=== PATIENT | male | born 1975 | race Two or more races ===

== ENCOUNTER 2023-07-19 19:24 | Inpatient (IN) | payer OTHER ==
[~2023-07-19] VITALS: Ht 165.1 cm; Wt 100.6 kg
[2023-07-19] MEDS ORDERED: ONDANSETRON HCL 4 MG/2 ML VIAL IV ONE (20:15)
[2023-07-19] MEDS ORDERED: PANTOPRAZOLE 40 MG/10 ML VIAL INJ IV ONE (20:15)
[2023-07-19] MEDS ORDERED: HYDROmorphone HCL 2 MG/ML VL/or syr IV ONE (20:15)
[2023-07-19] MEDS ORDERED: SODIUM CHLORIDE 0.9% 1,000 ML IVB ONE (20:15)
[2023-07-19] MEDS ORDERED: IOHEXOL 300 MG/ML 100ML BOTTLE IJ ONE (20:21)
[2023-07-19 21:00] LABS: Basophils # (auto) 0 10 ^3/uL (0-0.2); Basophils % (auto) 0.2 % (0.0-2.0); Eosinophils # (auto) 0 10 ^3/uL (0-0.8); Eosinophils % (auto) 0.1 % (0.0-7.0); Hematocrit 48.7 % (41.0-53.0); Hemoglobin 16.2 g/dL (13.5-17.5); Lymphocytes # (auto) 1.1 10 ^3/uL (0.4-5.4); Lymphocytes % (auto) 8.1 % (10.0-50.0); Mean Corpuscular Hemoglobin 30.3 pg (28.0-32.0); Mean Corpuscular Hgb Conc. 33.2 g/dL (32.0-36.0); Mean Corpuscular Volume 91.3 fL (80.0-100.0); Monocytes # (auto) 0.8 10 ^3/uL (0-1.3); Monocytes % (auto) 5.9 % (0.0-12.0); Neutrophils # (auto) 11.5 10 ^3/uL (1.6-8.6); Neutrophils % (auto) 85.7 % (37.0-80.0); Nucleated Red Blood Cells % 0.3 %; Red Blood Cells 5.33 10^6/uL (4.5-5.90); Red Cell Distribution Width 13.3 % (11.8-14.3); White Blood Cell 13.4 10^3/uL (4.4-10.8)
[2023-07-19 21:20] LABS: Alanine Aminotransferase 13 U/L (7-40); Albumin 4.7 g/dL (3.2-4.8); Alkaline Phosphatase 58 U/L (46-116); Anion Gap 11 (5-15); Aspartate Aminotransferase 39 U/L (13-40); BUN/Creatinine Ratio 7.4 (10.0-20.0); Blood Urea Nitrogen 11 mg/dL (9-23); Calcium 10.1 mg/dL (8.5-10.1); Carbon Dioxide 26 mmol/L (20-30); Chloride 100 mmol/L (98-107); Glucose 115 mg/dL (74-106); Potassium 3.9 mmol/L (3.5-5.1); Sodium 137 mmol/L (136-145)
[2023-07-19 21:21] LABS: Bilirubin, Total 2.2 mg/dL (0.2-1.0); Lactic Acid w/Reflex 3.6 mmol/L (0.4-2.0)
[2023-07-19 21:34] LABS: Lipase 49 U/L (12-53); Magnesium 2.1 mg/dL (1.6-2.6)
[2023-07-19 22:06] LABS: Blood Alcohol < 3.0 mg/dL (<10)
[2023-07-19] MEDS ORDERED: PIPERACILLIN-TAZOB 3.375GM 100 ML IV ONE (23:15)
[2023-07-19 23:56] LABS: Urine Epithelial Cast None Seen /hpf (<5)
[2023-07-20] VITALS (8 sets, daily range): BP systolic 126–144; BP diastolic 67–82; PULSE 60–71; RESP 14–20; TEMP 97.5–98.7; O2SAT 96–98
[2023-07-20] MEDS ORDERED: metroNIDAZOLE 500MG/100ML 100 ML IV ONE
[2023-07-20] MEDS ORDERED: SODIUM CHLORIDE 0.9% 1,000 ML IV ONE
[2023-07-20 00:19] LABS: Urine Bacteria NONE SEEN /hpf (None Seen); Urine Blood 3+ /uL (Negative); Urine Clarity Clear (Clear); Urine Color Yellow (Yellow); Urine Protein, UAD TRACE (Negative); Urine Specific Gravity 1.036 (1.001-1.035); Urine Urobilinogen Normal (Negative); Urine WBC 8 /hpf (0 - 3)
[2023-07-20 00:25] LABS: Amphetamine Screen, Urine Neg (NEGATIVE); Benzodiazephine Screen, Urine Neg (NEGATIVE)
[2023-07-20 00:26] LABS: Barbiturate Scree,Urine Neg (NEGATIVE); Cannabinoid Screen, Urine Neg (NEGATIVE); Cocaine Screen, Urine Neg (NEGATIVE); Opiate Scree,Urine Neg (NEGATIVE); Phencyclidine Screen, Urine Neg (NEGATIVE)
[2023-07-20] MEDS ORDERED: METOCLOPRAMIDE 10 mg/10ml ORAL soln GT ONE (02:00)
[2023-07-20] MEDS ORDERED: MORPHINE SULFATE INJ 2 MG/ml SYRG IV PRN (02:15)
[2023-07-20] MEDS ORDERED: NITROGLYCERIN 0.4 MG SL TAB SL PRN (02:15)
[2023-07-20] MEDS ORDERED: ONDANSETRON HCL 4 MG/2 ML VIAL IV PRN (02:15)
[2023-07-20] MEDS: D5W/SOD CHL 0.45% 1,000 ML IV SCH ×4 (02:15→22:15)
[2023-07-20 04:13] LABS: Chloride 105 mmol/L (98-107); Potassium 3.8 mmol/L (3.5-5.1); Sodium 139 mmol/L (136-145)
[2023-07-20 04:14] LABS: Anion Gap 8 (5-15); Calcium 8.7 mg/dL (8.7-10.4); Carbon Dioxide 26 mmol/L (20-30)
[2023-07-20 04:19] LABS: BUN/Creatinine Ratio 10.9 (10.0-20.0); Blood Urea Nitrogen 14 mg/dL (9-23); Glucose 106 mg/dL (74-106)
[2023-07-20] MEDS ORDERED: LISI20TA56 PO (06:05)
[2023-07-20] MEDS: MORPHINE SULFATE INJ 2 MG/ml SYRG IV PRN ×3 (06:38→17:28)
[2023-07-20] MEDS: TAMSULOSIN HYDROCHLORIDE 0.4 MG CAP PO SCH (10:48)
[2023-07-20] MEDS: PANTOPRAZOLE 40 MG/10 ML VIAL INJ IV SCH ×2 (10:48→20:07)
[2023-07-20] MEDS: ENOXAPARIN SOD 40 MG/0.4 ML SYRINGE SC SCH (10:49)
[2023-07-20] MEDS: NITROFURANTOIN 100 mg CAP PO SCH ×2 (10:49→20:07)
[2023-07-21 05:00] VITALS: BP 140/84; PULSE 58; RESP 18; TEMP 98.2; O2SAT 94
[2023-07-21] MEDS: D5W/SOD CHL 0.45% 1,000 ML IV SCH ×3 (05:05→18:15)
[2023-07-21 08:00] VITALS: PULSE 60; RESP 16; O2SAT 97
[2023-07-21] MEDS: PANTOPRAZOLE 40 MG/10 ML VIAL INJ IV SCH ×2 (10:07→21:31)
[2023-07-21] MEDS: ENOXAPARIN SOD 40 MG/0.4 ML SYRINGE SC SCH (10:08)
[2023-07-21] MEDS: NITROFURANTOIN 100 mg CAP PO SCH ×2 (10:08→21:31)
[2023-07-21] MEDS: TAMSULOSIN HYDROCHLORIDE 0.4 MG CAP PO SCH (10:08)
[2023-07-21] MEDS: MORPHINE SULFATE INJ 2 MG/ml SYRG IV PRN ×2 (10:09→20:27)
[2023-07-21 17:00] VITALS: BP 128/85; PULSE 70; RESP 14; TEMP 98.4; O2SAT 98
[2023-07-21 20:00] VITALS: PULSE 61; RESP 20; O2SAT 96
[2023-07-21] MEDS ORDERED: HYDROcodone-ACET 10/325MG TAB PO PRN (20:30)
[2023-07-21 20:40] LABS: Urine Epithelial Cast None Seen /hpf (<5)
[2023-07-21 20:46] LABS: Urine Bacteria FEW /hpf (None Seen); Urine Blood Negative /uL (Negative); Urine Clarity Clear (Clear); Urine Color Yellow (Yellow); Urine Protein, UAD Negative (Negative); Urine Specific Gravity 1.011 (1.001-1.035); Urine WBC 1 /hpf (0 - 3)
[2023-07-21 22:00] VITALS: BP 167/88; PULSE 66; RESP 22; TEMP 98.4; O2SAT 96
[2023-07-21 22:30] VITALS: BP 152/83; PULSE 61
[2023-07-22] VITALS (7 sets, daily range): BP systolic 114–149; BP diastolic 76–91; PULSE 59–80; RESP 14–19; TEMP 36; O2SAT 92–98
[2023-07-22] MEDS: TAMSULOSIN HYDROCHLORIDE 0.4 MG CAP PO SCH (09:53)
[2023-07-22] MEDS: ENOXAPARIN SOD 40 MG/0.4 ML SYRINGE SC SCH (09:53)
[2023-07-22] MEDS: NITROFURANTOIN 100 mg CAP PO SCH (09:53)
[2023-07-22] MEDS: PANTOPRAZOLE 40 MG/10 ML VIAL INJ IV SCH (09:53)
== END 2023-07-22 23:00 | DRG 694 ==
LOC: EEVIPCON 19:24 → EDBD 19:24 → ER 19:24 → OVERFLOW 07-20 02:14 → WEST WING 07-20 05:00
PROVIDERS: ADMIT Internal Medicine; ATTEND Internal Medicine
DX: N20.9 Urinary calculus, unspecified (principal); R31.9 Hematuria, unspecified; I10 Essential (primary) hypertension
CPT/HCPCS: 36415; 71045; 74018; 74177; 76705; 80048; 80053; 80307; 80320; 81001; 83605; 83690; 83735; 84484; 85025; 87086; 93005; 96365; 96367; 96375; C9113; G0378; J2405; J2543; J3490; J7042